=== PATIENT | female | born 1995 | race Caucasian/White ===

== ENCOUNTER 2021-04-07 20:22 | Emergency (ER) | payer OTHER ==
[~2021-04-07] VITALS: Ht 157.5 cm; Wt 84.0 kg
[2021-04-07 20:23] VITALS: BP 142/90
[2021-04-08] MEDS ORDERED: DEXAMETHASONE 4 MG TABLET PO ONE
[2021-04-08] MEDS ORDERED: DEXAMETHASONE 4 MG TABLET ONE (00:36)
== END 2021-04-08 01:06 | disposition home or self-care (01) ==
LOC: ED 23:00
DX: J02.0 Streptococcal pharyngitis (principal); Z20.822 Contact with and (suspected) exposure to COVID-19
CPT/HCPCS: 87081; 87880; 99283; U0003; U0005